=== PATIENT | female | born 1945 | race Caucasian/White ===

== ENCOUNTER → 2018-03-26 | Outpatient (CLI) | payer MEDICARE, BC | LOC: M.RAD 13:13 | DX: Z12.31 Encounter for screening mammogram for malignant neoplasm of breast (principal) ==

== ENCOUNTER → 2019-03-26 | Outpatient (CLI) | payer MEDICARE, BC | LOC: M.RAD 11:11 | DX: Z12.31 Encounter for screening mammogram for malignant neoplasm of breast (principal) ==

== ENCOUNTER → 2020-03-29 | Outpatient (CLI) | payer MEDICARE, BC | LOC: M.RAD 10:30 | PROVIDERS: ATTEND Nurse Practitioner Family | DX: Z12.31 Encounter for screening mammogram for malignant neoplasm of breast (principal) ==